=== PATIENT | male | born 1945 | race Caucasian/White ===

== ENCOUNTER 2022-10-20 11:34 | Outpatient (CLI) | payer MEDICARE | END 2022-10-20 11:35 | disposition home or self-care (01) | LOC: CSHRAD 11:34 | PROVIDERS: ATTEND Internal Medicine | DX: M79.645 Pain in left finger(s) (principal); M79.89 Other specified soft tissue disorders; M19.042 Primary osteoarthritis, left hand; S63.213A Subluxation of metacarpophalangeal joint of left middle finger, initial encounter; S63.215A Subluxation of metacarpophalangeal joint of left ring finger, initial encounter; S63.211A Subluxation of metacarpophalangeal joint of left index finger, initial encounter ==

== ENCOUNTER 2024-09-30 15:09 | Emergency (ER) | payer MEDICARE ==
[2024-09-30 17:35] LABS: Hematocrit 38.4 % (38.8-50.0); Hemoglobin 12.3 g/dL (13.5-17.5); Mean Corpuscular Hemoglobin 29.7 pg (27.0-33.0); Mean Corpuscular Volume 92.8 fL (81.2-95.1); Mean Platelet Volume 9.1 fL (7.4-10.4); Platelet Count 245 10x3/uL (150-450); RBC Distribution Width 16.5 % (11.5-14.5); Red Blood Cell (RBC) Count 4.14 10x6/uL (4.32-5.72)
[2024-09-30 17:46] LABS: INR-International Normal Ratio 1.1; PTT 27.3 sec (22.0-33.0); Prothrombin Time 11.9 sec (9.5-12.1)
[2024-09-30 17:50] LABS: ALT (SGPT) 18 U/L (8-55); AST (SGOT) 14 U/L (5-34); Alkaline Phosphatase 91 U/L (40-110); Anion Gap 14 mmol/L (10-20); BUN (Urea Nitrogen) 14 mg/dL (8.4-25.7); Bilirubin, Total 0.4 mg/dL (0.2-1.2); Calc. Creatinine Clearance 0 mL/min (70-130); Calcium 9.3 mg/dL (7.8-10.44); Carbon Dioxide 27 mmol/L (23-31); Chloride 100 mmol/L (98-107); Estimated GFR 59; Globulin 3.1 g/dL (2.4-3.5); Glucose 97 mg/dL (83-110); Potassium 3.8 mmol/L (3.5-5.1); Protein, Total 7.1 g/dL (5.8-8.1); Sodium 137 mmol/L (136-145)
[2024-09-30 17:54] LABS: Troponin I 0.016 ng/mL (< 0.028)
[2024-09-30 18:25] LABS: MDiff Complete? YES
[2024-09-30 18:28] LABS: Eosinophils 4 % (0-10); Lymphocytes 18 % (21-51); Monocytes 4 % (0-10); Neutrophil 72 % (42-75)
[2024-09-30 18:29] LABS: Anisocytosis SLIGHT = 6-15 cells (100X) (0-5/hpf); Ovalocytes SLIGHT = 2-5 cells (100X) (0-1/hpf)
[2024-09-30 18:30] LABS: Platelet Adequacy Comment Appears Adequate
[2024-09-30] MEDS ORDERED: Apixaban 5 MG TAB ONE (20:48)
== END 2024-09-30 21:11 | disposition left against medical advice (07) ==
LOC: CSHERS 15:09
DX: I74.2 Embolism and thrombosis of arteries of the upper extremities (principal); I48.91 Unspecified atrial fibrillation; I11.0 Hypertensive heart disease with heart failure; I50.9 Heart failure, unspecified; E78.5 Hyperlipidemia, unspecified; F17.220 Nicotine dependence, chewing tobacco, uncomplicated; Z79.82 Long term (current) use of aspirin; Z79.899 Other long term (current) drug therapy
CPT/HCPCS: 80053; 84484; 85025; 85610; 85730; 93005; 93923